=== PATIENT | female | born 1950 | race Caucasian/White ===

== ENCOUNTER 2017-01-21 05:59 | Day surgery (SDC) | payer OTHER ==
[~2017-01-21] VITALS: Ht 160 cm; Wt 71.0 kg
[~2017-01-21 05:59] MED LIST: ABAL1.56 INJ; AMLO1CAP PO; ASPI-496 PO; BIMA2.5D EACHEYE; CHOL10003 PO; FENO145T32 PO; GABA300C10 PO; IBUP-1222 PO; METH2.5T PO
[2017-01-21] MEDS ORDERED: LACTATED RINGERS 1,000 ML IV SCH (07:14)
[2017-01-21 07:18] VITALS: BP 138/85
[2017-01-21] MEDS ORDERED: MIDAZOLAM 1 MG/ML, 2ML ONE (09:05)
[2017-01-21] MEDS ORDERED: FENTANYL PF 250 MCG/5ML ONE (09:05)
[2017-01-21] MEDS ORDERED: PROPOFOL 10 MG/ML, 20ML ONE (09:06)
[2017-01-21] MEDS ORDERED: ONDANSETRON 2MG/ML, 2ML ONE (09:07)
[2017-01-21] MEDS ORDERED: DEXAMETHASONE 4 MG/ML, 1ML ONE (09:07)
[2017-01-21] MEDS ORDERED: EPINEPHRINE 1 MG/ML, 1ML ONE (09:11)
[2017-01-21] MEDS ORDERED: BUPIVACAINE/PF 0.5% ONE (09:11)
[2017-01-21] MEDS ORDERED: CEFAZOLIN 1,000 MG ONE (09:17)
[2017-01-21] MEDS ORDERED: SUCCINYLCHOLINE 20 MG/ML, 10ML ONE (09:17)
[2017-01-21] MEDS ORDERED: ONDANSETRON 2MG/ML, 2ML IVPush PRN (10:00)
[2017-01-21] MEDS ORDERED: FENTANYL PF 100 MCG/2ML IV PRN (10:00)
[2017-01-21] MEDS ORDERED: ACETAMINOPHEN 325 MG TABLET PO PRN (10:00)
[2017-01-21] MEDS ORDERED: LABETALOL 5MG/ML, 20ML IV PRN (10:00)
[2017-01-21] MEDS ORDERED: MIDAZOLAM 1 MG/ML, 2ML IV PRN (10:00)
[2017-01-21] MEDS ORDERED: HYDROmorphone 1 MG/ML, 1ML IV PRN (10:00)
== END 2017-01-21 12:10 ==
LOC: OUT 05:59
PROVIDERS: ATTEND Orthopaedic Surgery Orthopaedic Surgery of the Spine
DX: M80.88XA Other osteoporosis with current pathological fracture, vertebra(e), initial encounter for fracture (principal); I10 Essential (primary) hypertension; E78.5 Hyperlipidemia, unspecified; I25.10 Atherosclerotic heart disease of native coronary artery without angina pectoris; Z87.39 Personal history of other diseases of the musculoskeletal system and connective tissue; Z98.890 Other specified postprocedural states; Z79.82 Long term (current) use of aspirin; Z88.1 Allergy status to other antibiotic agents; Z88.5 Allergy status to narcotic agent
CPT/HCPCS: 22513; 36415; 71020; 72072; 80053; 81003; 85025; 85610; 85651; 85730; 88307; 88311; 93005; C1713; J0171; J0330; J0690; J1100; J2250; J2405; J2704; J3010; J3490; J7120